=== PATIENT | male | born 1955 | race Caucasian/White ===

== ENCOUNTER 2025-07-01 01:37 | Emergency (ER) | payer OTHER, MEDICARE ==
[2025-07-01] MEDS ORDERED: Sodium Chloride 0.9% 10 ML Syringe FLUSH PRN (01:51)
[2025-07-01 02:24] LABS: BLOOD UREA NITROGEN,BUN 32 mg/dL (7-18); CARBON DIOXIDE,CO2 25 mmol/L (21-32); CHLORIDE,CL 107 mmol/L (100-110); CREATININE 1.2 mg/dL (0.70-1.30); ESTIMATED GFR 64 mL/min (>60); GLUCOSE RANDOM 125 mg/dL (80-116); POTASSIUM,K 3.4 mmol/L (3.5-5.3); SODIUM,NA 146 mmol/L (135-145)
[2025-07-01 02:30] LABS: A/G RATIO 1.0; ALANINE AMINOTRANSFERASE,ALT 32 U/L (12-36); ASPARTATE AMNIOTRANSFERASE,AST 61 IU/L (5-25); BILIRUBIN TOTAL 0.4 mg/dL (0.1-1.3); PROTEIN TOTAL,TP 7.7 g/dL (6.0-8.0)
[2025-07-01 02:33] LABS: MEAN PLATELET VOLUME 7.6 fL (6.7-11.0); PLATELET COUNT,PLT 288 x10(3)uL (117-477); RED BLOOD CELL COUNT 5.38 x10(6)uL (3.90-5.90); RED CELL DISTRIBUTION WIDTH 14.0 % (12.4-15.0); WHITE BLOOD CELL COUNT,WBC 12.1 x10-3/uL (3.2-10.1)
[2025-07-01 02:34] LABS: ETHANOL BLOOD MEDICAL < 0.03 % (<0.03)
[2025-07-01] MEDS: Diphtheria,Pertussis(Acell),Tetanus Vaccine 0.5 ML Syringe IM ONE (02:49)
[2025-07-01] MEDS: Iopamidol 755 Mg/ML 100 ML Bottle IV SCH (02:50)
[2025-07-01 03:09] LABS: EOSINOPHILS PERCENT MAN 1 % (0-5); LYMPHOCYTES PERCENT MAN 3 % (13-37); MONOCYTES PERCENT MAN 2 % (4-12); SEG NEUTROPHILS PERCENT MAN 94 % (46-82)
[2025-07-01 03:10] LABS: AMPHETAMINES SCREEN, URINE NEGATIVE (NEGATIVE); METHADONE SCREEN, URINE NEGATIVE (NEGATIVE); METHAMPHETAMINE SCREEN, URINE NEGATIVE (NEGATIVE); OXYCODONE SCREEN,URINE NEGATIVE (NEGATIVE)
[2025-07-01 03:11] LABS: BUPRENORPHINE SCREEN,URINE NEGATIVE (NEGATIVE)
[2025-07-01] MEDS: Dexamethasone 4 MG/ML 5 ML MDV IVPUSH ONE (03:32)
[2025-07-01 03:43] LABS: GLUCOSE,URINE NORMAL (NORMAL); OCCULT BLOOD,URINE LARGE (NEGATIVE)
[2025-07-01 03:44] LABS: APPEARANCE,URINE CLOUDY (CLEAR)
[2025-07-01 03:45] LABS: SQUAMOUS EPITHELIAL CELLS,UR RARE (NS,R,O)
== END 2025-07-01 05:23 ==
LOC: FB.ED 01:37
DX: R41.82 Altered mental status, unspecified (principal); N39.0 Urinary tract infection, site not specified; R31.9 Hematuria, unspecified; R91.8 Other nonspecific abnormal finding of lung field; C71.9 Malignant neoplasm of brain, unspecified; Z23 Encounter for immunization; V69.40XA Driver of heavy transport vehicle injured in collision with unspecified motor vehicles in traffic accident, initial encounter
CPT/HCPCS: 36415; 70450; 71260; 72125; 74177; 80053; 80307; 81001; 83690; 83735; 84484; 85025; 87086; 87088; 87186; 90471; 90715; 93005; 93010; 96365; 96375; 96376; 99285; 99285-25; J0696; J1100; J1953; Q9967